=== PATIENT | female | born 2000 | race Caucasian/White ===

== ENCOUNTER 2020-07-18 01:57 | Emergency (ER) | payer BC ==
[~2020-07-18] VITALS: Ht 157.5 cm; Wt 59.1 kg
[2020-07-18 02:05] VITALS: BP 114/70
[2020-07-18] MEDS ORDERED: HYDROcodone/acetaminophen 5mg/325mg tablet PO ONE (04:40)
[2020-07-18] MEDS ORDERED: amox tr/potassium clavulanate 875/125mg TAB PO ONE (04:40)
[2020-07-18] MEDS ORDERED: NAPR-56 PO (04:45)
[2020-07-18] MEDS ORDERED: AMOX-422 PO (04:45)
== END 2020-07-18 05:00 | disposition home or self-care (01) ==
LOC: ER 01:59
DX: K04.7 Periapical abscess without sinus (principal); K01.1 Impacted teeth; K08.89 Other specified disorders of teeth and supporting structures; Z79.2 Long term (current) use of antibiotics; Z79.899 Other long term (current) drug therapy
CPT/HCPCS: 99283